=== PATIENT | male | born 1980 | race African-American/Black ===

== ENCOUNTER 2017-04-16 05:37 | Inpatient (IN) ==
[2017-04-16] MEDS ORDERED: methylPREDNISolone SOD SUC 125 MG/2 ML VIAL IV STA (06:07)
[2017-04-16] MEDS ORDERED: ALBUTEROL/IPRATROPIUM 3 ML NEB RESP TX STA (06:07)
[2017-04-16] MEDS ORDERED: cefTRIAXone 1,000 MG in SODIUM CHLORIDE 0.9% 100 ML IV STA (06:07)
--- NOTE | 2017-04-16 06:12 | Emergency Department Note ---
Arrival - Arrival Chief Complaint: Shortness of Breath Stated Complaint: SOB,chest tightness ED Nursing Triage Note: pt presented to triage ambulatory with c/o SOB x 1 days. also c/o pain with deep inspiration. denies fever. Mode of Arrival: Ambulatory Limitations: No Limitations Source: Patient Time Seen by Provider: 04/16/17 06:07 - History of Present Illness HPI Narrative: This 37-year-old black male presents with 48 hours of persistent cough cough productive of roland sputum with mild complaints of pleuritic type chest pain. Denies chills, fever, wheeze, purulence, hemoptysis, pedal edema, PND, orthopnea , nausea, or vomiting. He denies any prior history of cardiac or pulmonary problems. Currently he is in no acute medical distress. Onset (ago): hour(s) (Patient presents 48 hours post onset of symptoms) Allergies/Adverse Reactions: Allergies Allergy/AdvReac Type Severity Reaction Status Date / Time No Known Allergies Allergy Unverified 04/16/17 05:45 Review of System - Review of System 12 point system: reviewed and no additional remarkable complaints except as stated - Review of System Constitutional: Present: as per HPI Respiratory: Present: as per HPI Cardiovascular: Present: as per HPI Gastrointestinal: Present: as per HPI Medical,Surgical,& Family Hx - Social History Smoking Status: Current every day smoker Frequency of Alcohol Use: Occasionally Type of Drug Use: None Exam Physical Examination: GENERAL: Well developed, well nourished black male in no acute distress. HEENT: Normocephalic. No trauma. Moist mucous membranes. EOMI. PERRLA. ENT NML NECK: Supple. No adenopathy. CARDIAC: Regular. No murmurs. Heart rate 115 CHEST: Light anterior expiratory wheezes. No respiratory distress. O2 sat 94% ABDOMEN: Soft. Nontender. Active bowel sounds. EXTREMITIES: No trauma. Normal ROM. No pedal edema. SKIN: No diaphoresis. No rash. NEURO: Alert. Neuro intact no focal deficits. Vital Signs: Vital Signs Temperature 98.4 F 04/16/17 05:39 Pulse Rate 106 H 04/16/17 06:32 Respiratory Rate 18 04/16/17 06:32 Blood Pressure 138/103 04/16/17 05:48 O2 Sat by Pulse Oximetry 96 04/16/17 06:32 Course - Reevaluation(s) Reevaluation #1: I have discussed with the patient that his cardiac situation warrants further workup and for that reason he will be hospitalized. - Consultations Consultation #1: Discussed with hospitalist service who will admit for further evaluation treatment. Results - Labs CBC & BMP: 04/16/17 05:50 04/16/17 05:50 Lab Results: I have reviewed the patients labs Labs: I have reviewed the laboratory noted the bump in cardiac enzymes as well as elevated total CK - Impressions EKG sinus tachycardia at 105. Normal GA interval and QRS duration. Left ventricular hypertrophy. Nonspecific ST changes. No acute injury pattern noted. - Diagnostic Findings Procedure: Chest x-ray: image reviewed by me, report reviewed by me ( Cardiomegaly with bilateral pulmonary edema) Disposition Clinical Impression: Congestive heart failure, Abnormal cardiac enzyme, Bronchitis, Hypertension Case discussed with: patient Disposition: Still a Patient Condition: Guarded Time of Disposition: 07:27
[2017-04-16] MEDS ORDERED: hydrALAZINE 20 MG/1 ML VIAL IV STA (06:13)
[2017-04-16 06:16] LABS: Basophils # 0.1 10*3/uL (0.0-0.2); Basophils % 0.8 % (0.0-0.8); Eosinophils # 0.4 10*3/uL (0.0-0.87); Eosinophils % 5.6 % (0.00-10.9); Hematocrit 49.1 VOL% (42.0-52.0); Hemoglobin 16.8 GM/DL (14.0-18.0); Immature Granulocytes % 0.3 %; Immature Granulocytes Absolute 0.02 #; Lymphocytes # 2.1 10*3/uL (1.4-4.0); Lymphocytes % 34.1 % (21.2-54.2); Mean Corpuscular HGB Conc 34.2 GM/DL (32-36); Mean Corpuscular Hemoglobin 30 PG (27-34); Mean Corpuscular Volume 87.7 FL (87-102); Mean Platelet Volume 11.6 FL (9.6-12.0); Monocytes # 0.4 10*3/uL (0.11-0.8); Monocytes % 6.8 % (1.7-12.7); Neutrophils # 3.3 10*3/uL (1.4-7.4); Neutrophils % 52.4 % (38.7-73.9); Platelet Count 211 T/CUMM (130-400); Red Cell Distribution Width 15.7 % (9.3-17.3); White Blood Count 6.2 T/CUMM (4-12)
[2017-04-16 06:26] LABS: PT Patient Result 10.6 SECS; Partial Thromboplastin Time 34.1 SECS (0-40)
[2017-04-16] MEDS ORDERED: hydrALAZINE 20 MG/1 ML VIAL ONE (06:31)
[2017-04-16] MEDS ORDERED: cefTRIAXone 1,000 MG VIAL ONE (06:31)
[2017-04-16] MEDS ORDERED: methylPREDNISolone SOD SUC 125 MG/2 ML VIAL ONE (06:32)
[2017-04-16] MEDS ORDERED: SODIUM CHLORIDE 0.9% 100 ML IV ONE (06:32)
[2017-04-16 06:52] LABS: Apearance,Urine CLEAR (Clear); Bilirubin,Urine Negative (Negative); Blood, Urine Small mg/dL (Negative); Glucose,Urine (UA) Negative (Negative); Ketones,Urine Negative (Negative); Mucus,Urine Occasional /LPF (Occasional); Nitrite,Urine Negative (Negative); Protein,Urine Negative; Urine Color Yellow (Yellow); Urine Specific Gravity 1.009 (1.001-1.035); Urine Urobilinogen < 2.0 EU/DL (0.2-1.0); WBC,Urine 1 /HPF (0-6)
[2017-04-16 06:54] LABS: Alanine Aminotransferase 40 U/L (16-61); Alkaline Phosphatase 72 U/L (45-117); Aspartate Amino Transferase 34 U/L (0-37); Blood Urea Nitrogen 13 MG/DL (7-18); Calcium 9.1 MG/DL (8.5-10.1); Glucose 92 MG/DL (74-106); Osmolality,Calculated 280.3 MOS/KG (273-304); Potassium 3.9 MMOL/L (3.5-5.1); Sodium 141 MMOL/L (136-145); Total Protein 7.7 G/DL (6.4-8.3); Troponin I Only 0.048 NG/ML (0.00-0.045)
[2017-04-16] MEDS ORDERED: AZITHROMYCIN INJ 500 MG in SODIUM CHLORIDE 0.9% 250 ML IV STA (06:58)
[2017-04-16 07:06] LABS: Barbiturates Screen,Urine Negative (Negative); Benzodiazepines Screen,Urine Negative (Negative); Cannabinoid Screen,Urine Negative (Negative); Opiate Screen,Urine Negative (Negative); Phencyclidine Screen,Urine Negative (Negative)
[2017-04-16] MEDS ORDERED: AZITHROMYCIN 500 MG VIAL IV ONE (07:09)
--- NOTE | 2017-04-16 07:11 | XRay Report ---
2 view chest. Indication: Shortness of breath. The heart is enlarged. The pulmonary vasculature is prominent. The interstitial lung markings are prominent with curly B-lines present. No pneumothorax. No pleural effusion. No consolidation. Osseous structures are unremarkable. Impression: Pulmonary edema. PROCEDURE INTERPRETED AT [facility] DEPARTMENT OF RADIOLOGY Final Report Signed by: Dr. Madeline Jain
[2017-04-16] MEDS ORDERED: FUROSEMIDE 40 MG/4 ML VIAL IV STA (07:16)
[2017-04-16] MEDS ORDERED: FUROSEMIDE 40 MG/4 ML VIAL ONE (07:35)
--- NOTE | 2017-04-16 07:47 | EKG Report ---
Stationary ECG Study [facility] ER Test Date: 04/16/2017 5:43:41 AM Pat Name: CONI FRIEND Department: Room: Gender: M [employer]er: Nadeen : 1980 Requested by: Renny Taylor Order Number: [id number] Reading MD: AIDE GALICIA Intervals [place] Rate: 105 P: 999 [place]: 0 QRS: 59 QRSD: 102 T: 72 QT: 332 QTc: 393 Interpretive Statements Sinus TACHYCARDIA POSSIBLE LEFT VENTRICULAR HYPERTROPHY Electronically Signed On 04-16-17 07:51:17 CDT by AIDE GALICIA [email or web address]
[2017-04-16] MEDS ORDERED: DOCUSATE SODIUM 100 MG CAPSULE PO PRN (08:03)
[2017-04-16] MEDS ORDERED: ACETAMINOPHEN 325 MG TABLET PO PRN (08:03)
[2017-04-16] MEDS ORDERED: ONDANSETRON 4 MG/2 ML VIAL IV PRN (08:03)
[2017-04-16] MEDS ORDERED: NICOTINE 21 MG/24 HR PATCH TRANSDERM PRN (08:03)
[2017-04-16] MEDS ORDERED: guaiFENesin/DM ER 600-30 MG TABLET PO PRN (08:03)
[2017-04-16] MEDS ORDERED: ZALEPLON 5 MG CAPSULE PO PRN (08:03)
--- NOTE | 2017-04-16 08:27 | Hospitalist History & Physical ---
<Lorin Ericksonda - Last Filed: 04/16/17 08:20> Assessment and Plan - Time spent with patient Time spent with patient: Greater than 30 minutes (1) Nicotine addiction Status: Acute Assessment and plan: The patient reports current nicotine use. He reported that he smokes at least a half a pack of cigarettes each day. Spoke with patient in great detail regarding the need to refrain from nicotine use. Nicotine patch has been ordered patient has agreed to wear patch during the clinical encounter. Current Visit: Yes Qualifiers: Nicotine product type: cigarettes (2) Left ventricular hypertrophy by electrocardiogram Status: Acute Assessment and plan: Left ventricular hypertrophy suggested per electrocardiogram. The patient reports no significant cardiovascular history in the past. We will obtain echocardiogram to assess current heart function. In addition, we will start low -dose beta-domitila and CHAVA inhibitor. We will monitor closely. Current Visit: Yes (3) Congestive heart failure Status: Acute Assessment and plan: Chest x-ray suggested pulmonary edema. In addition, the patient's BNP was noted at 488 and troponins were noted at 0.048. The patient was also noted to have left ventricular hypertrophy per electrocardiogram. The patient has multiple factors increase in the risk for cardiovascular dysfunction. We will gently diurese, start beta-blockers and CHAVA inhibitors, we will obtain echocardiogram, and carotid Dopplers. We will monitor intake and output closely during the clinical encounter. Current Visit: Yes Qualifiers: Congestive heart failure type: unspecified congestive heart failure type Congestive heart failure chronicity: unspecified congestive heart failure chronicity Qualified Code(s): I50.9 - Heart failure, unspecified (4) Elevated troponin I level Status: Acute Assessment and plan: Troponin at the time of ED encounter was noted at 0.048. We will obtain serial troponin levels; if positive we will consult cardiology. Current Visit: Yes (5) Acute bronchitis Status: Acute Assessment and plan: Blood cultures have been obtained. We will start empiric antibiotic coverage, inhaled corticosteroids, and bronchodilators. We will recheck chest x-ray in a.m. Current Visit: Yes Qualifiers: Bronchitis organism: unspecified organism Qualified Code(s): J20.9 - Acute bronchitis, unspecified History of Present Illness Chief complaint: Shortness of breath History of present illness: This is a very pleasant 37-year-old male that presented to the ED at [facility] this morning for the evaluation of shortness of breath. The patient has a medical history significant for morbid obesity, nicotine addiction, and testosterone deficiency. The patient reported no surgical history at the time of encounter. The patient reported the onset of symptoms 2 days prior to presentation. He reported that he initially started experiencing short of breath that eventually progressed to a productive cough. In addition, he reported that the symptoms became very severe on last night prohibiting him from lying down. He describes the sputum production as "roland in color". He reported that the symptoms became very severe early this morning prompting him to present to the ED for further evaluation. The patient was seen and assessed at the time of ED presentation. Labs were obtained; complete blood count reported white blood cell count 6.2, hemoglobin 16.8, hematocrit 49.1, and platelet count at 211. Coagulation panel reported INR at 1.0, PT 10.6, d-dimer at less than or equal to 0.5, and PTT of 34.1. Comprehensive metabolic profile reported sodium 141, potassium 3.9, chloride 109 , carbon dioxide 22, anion gap 13.9, BUN 13, creatinine 1.50, calcium 9.1, AST 34, ALT 40, alkaline phosphatase 72, total creatinine kinase 663, CK-MB 2.3, troponin 0 0.048, and BNP at 488. Urinalysis and urine toxicology were both obtained and were essentially unremarkable. Chest x-ray reported cardiomegaly and pulmonary edema. After brief discussion with both Dr. Novak and Dr. Nascimento; the patient will be admitted to the hospitalist service for continuation of care. There are no home medications reported at the time of ED encounter. CODE STATUS has been reviewed and discussed; patient is a FULL CODE. Allergies Allergy/AdvReac Type Severity Reaction Status Date / Time No Known Allergies Allergy Unverified 04/16/17 05:45 Medical,Surgical,& Family Hx - Medical History Reproductive: Reports: Reproductive Problems (Testosterone deficiency) - Social History Smoking Status: Current every day smoker Have you smoked in the last 12 months: Yes Time spent discussing smoking cessation with patient: more than 10 minutes Frequency of Alcohol Use: Occasionally Type of Drug Use: None Marital Status: Single Lives With:: Alone Functional capacity: independent ambulation 12 point system: reviewed and no additional remarkable complaints except as stated Exam - Constitutional Vitals: Period Temp Pulse Resp BP Sys/Ibrahim Pulse Ox Last 24 Hr 98.4 F 101-114 18-22 137-138/103-115 94-97 General appearance: morbidly obese - Head Head exam: Present: normal inspection, normocephalic, atraumatic - Eye Eye exam: Present: EOMI. Absent: conjunctival injection Pupils: Present: NIGHAT, normal accommodation - ENT ENT exam: Present: normal exam, normal external ear exam, normal oropharynx - Neck Neck exam: Present: normal inspection. Absent: lymphadenopathy, meningismus, thyromegaly - Respiratory Respiratory exam: Present: wheezes (Expiratory). Absent: chest wall tenderness , decreased breath sounds - Cardiovascular Cardiovascular exam: Present: regular rate and rhythm. Absent: carotid bruit, diastolic murmur, gallop, JVD, rubs, systolic murmur - GI/Abdominal GI/Abdominal exam: Present: normal bowel sounds, soft - Extremities Exam Extremities exam: Present: normal inspection, normal capillary refill, full ROM. Absent: edema - Back Exam Back exam: Present: normal inspection - Neurological Exam Neurological exam: Present: alert, oriented X3, CN II-XII intact - Psychiatric Psychiatric exam: Present: normal affect, normal mood - Skin Skin exam: Present: normal color, warm, dry Results - Labs CBC & BMP: 04/16/17 05:50 04/16/17 05:50 Lab Results: I have reviewed the past 24 hour labs <Yamilet Szymanski - Last Filed: 04/16/17 12:50> History of Present Illness History of present illness: Mr. Vela is a 37 year old male who presented with SOB. Echo showed Echocardiogram done this morning showed a severely dilated left ventricle with severe global hypokinesis and an ejection fraction of 15% plus/minus. Carotid Doppler with 0-15% stenosis in both internal carotid arteries. Chest x-ray suggested pulmonary edema. Troponin on admission was 0.048 and CK was 663. At last check troponin was down to 0.033. Patient denies a history of chestpain, EKG showed LVH Plan monitored bed cardiac enzymes IV lasix, aceI, bblockers,asa, lovenox Follow Cardiology's consult high intensity Lipitor Exam - Constitutional Vitals: Period Temp Pulse Resp BP Sys/Ibrahim Pulse Ox Last 24 Hr 96.7 F-98.4 F 86-114 18-22 133-138/69-115 94-97 Results - Labs CBC & BMP: 04/16/17 05:50 04/16/17 05:50
[2017-04-16] MEDS ORDERED: MAGNESIUM SULF RIDER 4 GM in PREMIX 1 EACH IV PRN (08:30)
[2017-04-16] MEDS ORDERED: POTASSIUM CHLORIDE RIDER 10 MEQ in PREMIX 1 EACH IV PRN (08:30)
[2017-04-16] MEDS ORDERED: MAGNESIUM SULF RIDER 2 GM in PREMIX 1 EACH IV PRN (08:30)
[2017-04-16 08:35] LABS: Risk Ratio 8.03; Thyroid Stimulating Hormone 3.58 uIU/ml (0.358-3.74); VLDL CHOLESTEROL 69.4 MG/DL
[2017-04-16] MEDS ORDERED: LISINOPRIL 2.5 MG TABLET PO SCH (09:00)
[2017-04-16] MEDS ORDERED: CARVEDILOL 3.125 MG TABLET PO SCH (09:00)
[2017-04-16] MEDS ORDERED: ALBUTEROL 2.5 MG/3 ML NEB RESP TX PRN (09:52)
[2017-04-16] MEDS: ASPIRIN CHEW 81 MG TABLET PO SCH (10:46)
[2017-04-16] MEDS: PANTOPRAZOLE 40 MG TABLET PO SCH (10:46)
[2017-04-16] MEDS: ENOXAPARIN 40 MG/0.4 ML SYRINGE SUBCUT SCH (10:46)
--- NOTE | 2017-04-16 10:48 | ECHO Report ---
Narayan Vela Exam Date: 04/16/2017 09:17 Referring Physician: Technologist: phoebe Leigh ARDMS, RVT Age: 37 Ht (in): 72 Wt (lb): 300 Gender: M Exam Location: [facility] Echo Indications: CHF, Shortness of breath, LVH, Elevated troponin, Bronchitis, Nicotine addiction BP: 138 / 103 HR: 93 Rhythm: Sinus Technical Quality: Good IMPRESSIONS 1. Left ventricle severely dilated with severe global hypokinesis and ejection fraction of 15% plus/minus. 2. Right atrium and right ventricle are at least mildly dilated. 3. Moderately dilated left atrium. 4. Aortic valve is structurally functioning normal with only some views what may be a vegetation anterior to the right coronary cusp. Clinical correlation recommended. 5. Other valvular structures are unremarkable. 6. There is minimal elevated right-sided pressures. MEASUREMENTS (Male / Female) Normal Values 2D ECHO LV Diastolic Diameter PLAX 7.1 cm 4.2 - 5.9 / 3.9 - 5.3 cm LV Systolic Diameter PLAX 6.6 cm LV Fractional Shortening PLAX 6.9 % IVS Diastolic Thickness 1.4 cm 0.6 - 1.0 / 0.6 - 0.9 cm LVPW Diastolic Thickness 1.3 cm 0.6 - 1.0 / 0.6 - 0.9 cm RV Internal Dim ED PLAX 3.9 cm Aortic Root Diameter 3.7 cm LA Systolic Diameter LX 5.2 cm 3.0 - 4.0 / 2.7 - 3.8 cm DOPPLER TR Peak Velocity 274.0 cm/s TR Peak Gradient 30.0 mmHg FINDINGS Left Ventricle Left ventricle is severely dilated. Mild left ventricular hypertrophy. There is severe global hypokinesis ejection fraction is estimated at 15-/+ %. Right Ventricle Mildly increased right ventricular size. Right Atrium The right atrium is mildly enlarged. Left Atrium Moderately increased left atrial size. Mitral Valve Morphologically normal mitral valve. Trace to mild mitral valve regurgitation. Aortic Valve No aortic valve regurgitation. No aortic valve stenosis. There is an echogenic area anterior to the right coronary cusp on long axis views that could possibly represent a vegetation. Tricuspid Valve Morphologically normal tricuspid valve. Trace to mild tricuspid valve regurgitation. Tricuspid regurgitation velocities suggest a PAP of 35- 40 mmHg. Pulmonic Valve Morphologically normal pulmonic valve without significant stenosis. There is no pulmonic regurgitation. Pericardium Normal pericardium without effusion. Aorta Normal ascending aorta dimension. Horacio Toscano MD (Electronically Signed) Final Date: 16 April 2017 10:46
--- NOTE | 2017-04-16 11:36 | Ultrasound Report ---
Exam: Carotid ultrasound Date: 04/16/2017 Comparison: None Technique: Duplex scans of the carotid and vertebral arteries using B-mode/Rai scale imaging and Doppler spectral analysis and color flow. Reason: Chest pain, possible cardiac disease Findings: The right ICA measures 4.9 mm in diameter and the left ICA measures 6.6 mm in diameter. Color-flow documented in the visualized arteries. The peak systolic velocities are as follows: Right CCA: 69.1 cm/s Right ICA: 74.3 cm/s Right ECA: 93.8 cm/s Left CCA: 85.3 cm/s Left ICA: 85.7 cm/s Left ECA: 108.2 cm/s The peak systolic ICA/CCA velocity ratios are as follows: 1.1 on the right and 0.7 on the left. Antegrade flow is present in both vertebral arteries. Impression:[0 - 15% stenosis in both internal carotid arteries with no significant plaque formation. Antegrade flow in both vertebral arteries.] The Society of Radiologists in Ultrasound consensus conference criteria was used. The Ultrasound images were captured and stored. PROCEDURE INTERPRETED AT [facility] DEPARTMENT OF RADIOLOGY Final Report Signed by: Dr. Fina La
[2017-04-16] MEDS: ALBUTEROL/IPRATROPIUM 3 ML NEB RESP TX SCH ×2 (14:53→21:05)
--- NOTE | 2017-04-16 15:00 | Cardiology Consult Note ---
I, Isabelle Deleon RN, am scribing for, and in the presence of, Horacio Toscano MD 14:51. Assessment and Plan - Time spent with patient Time spent with patient: Greater than 30 minutes (Due to assessment, planning, documentation, medication review) (1) Congestive heart failure Status: Acute Assessment and plan: This is acute and secondary LV dysfunction. This clinically is improving. We will need to treat this aggressively with beta-blockers as well as offloading agents. He is on lisinopril at this time which we will need to monitor special out of his creatinine be minimally elevated. Current Visit: Yes Qualifiers: Congestive heart failure type: unspecified congestive heart failure type Congestive heart failure chronicity: unspecified congestive heart failure chronicity Qualified Code(s): I50.9 - Heart failure, unspecified (2) Left ventricular hypertrophy by electrocardiogram Status: Acute Assessment and plan: This may be secondary to long-standing and uncontrolled unmanaged hypertension. Current Visit: Yes (3) Nicotine addiction Status: Acute Assessment and plan: Discussed the merits of tobacco cessation with patient. We will need to have rehab or someone see him in regard to this. Current Visit: Yes Qualifiers: Nicotine product type: cigarettes (4) Cardiomyopathy Status: Acute Assessment and plan: This is probably idiopathic/nonischemic. This is not acute even though his symptoms are somewhat acute. At level 15% this is been a slow progress that he has been able to compensate for until now. We will need to treat this aggressively including CHAVA inhibitor/ARB's as well as beta blockers and diuresis. Because of his creatinine being elevated we will continue to watch CHAVA inhibitors. Current Visit: Yes (5) Obesity Status: Acute Assessment and plan: Weight loss should be an important factor for him. This is a chronic issue. He needs dietary to discuss weight loss low-sodium diet with him. Current Visit: Yes (6) Chronic renal insufficiency Status: Acute Assessment and plan: Probably chronically sufficient his creatinine elevated. This could though be somewhat acute but we do not have any old records to compare to. I suspect with his BUN being normal with this is indeed more chronic. 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 Vela is a 37 year old male who has never seen a customs agent. He denies ever having had a stress test or heart catheterization done. He lives in [facility]. He denies any medical history except for testosterone deficiency. He denies any surgical history. Family history is positive for mother with diabetes and hypertension, father with hypertension, and sister with hypertension. He is a current smoker, smoking 1 pack per day. He has smoked since 2002. Mr. Vela states when he woke up yesterday morning he was extremely short of breath. He noted that this shortness of breath did get worse with exertion. He reports he did have some chest discomfort, but it felt like it hurt because he could not get a good breath. He denies any other further chest pain. He had noticed his abdominal area seem to be swollen, he has not noticed any swelling of his extremities. He presented the emergency department this morning because shortness with a continued and was getting no better. He states he did have an episode like this several months ago open (in January). At that time he was also visiting from out of town, but at that time the symptoms did improve and he never sought evaluation. He reports he has been drinking a lot of alcohol recently as well as eating lots of salty food including barbecue that he does not normally eat when he is at home. He was placed on oxygen in the emergency department as well as given IV Lasix. He says he diuresed well from the Lasix, and as soon as he began to diurese his shortness of breath improved. His diastolic blood pressures were greater than 100 in the emergency department. He was given hydralazine IV the emergency department and started on lisinopril and Coreg p.o. Her pressures have improved, currently 133/69. Echocardiogram done this morning showed ejection fraction of 15%. Aortic valve shows in some views but may be a vegetation anterior to the right coronary cusp. Carotid Doppler with 0-15% stenosis in both internal carotid arteries. Chest x-ray suggested pulmonary edema. Troponin on admission was 0.048 and CK was 663. At last check troponin was down to 0.033. His cholesterol numbers are elevated. He states he was told his triglycerides were elevated several years ago. He was never placed any medication, he is try to control this with diet. Mr. Vela is seen resting in bed no acute distress. Oxygen is in use via nasal cannula. He denies any chest pain. He reports his shortness of breath has improved a good deal, but states he is not back to his baseline. He feels his abdomen is smaller than when he came in, but again is not back to his baseline. seo assistant currently shows sinus rhythm with heart rates in the 90s. I personally interviewed and examined the patient and review the chart. I discussed this case with Isabelle Deleon RN. The patient history is as noted above. His issues is that he has a questionable vegetation on his aortic valve. He does not have an elevated white count or fever and he is not anemic. This certainly would be against a bacterial endocarditis. Certainly a fungal endocarditis would be possible still. He though clinically he has not had overt symptoms of endocarditis or an acute illness. He has not had any overt heart failure symptoms with the exception of an episode in January in which he was short of breath for short time that was self-limiting. It was similar to this episode. He though works out is been active. It certainly is unlikely that this is an acute situation in terms of his LV dysfunction in that at this level I would suspect he would be markedly symptomatic and more acutely ill. He needs a transesophageal echocardiogram to evaluate for possible aortic valve mass/endocarditis. I discussed this procedure in detail with the patient and his family present including his father mother and brother. I reviewed with them the indication the procedure which is his aortic valve mass on transthoracic echo. Also discussed with them the procedure and how it would be carried out with sedation and passing a probe into his esophagus and stomach. Also reviewed the possible risks which include but not limited to aspiration pneumonia requiring antibiotics and prolonged hospital stay as well as possible esophageal rupture or tear requiring blood transfusion or even thoracic surgery and even from this. They voiced understanding and agree to proceed. We will plan on doing this tomorrow. I also discussed with them his cardiomyopathy and at this time we need an issue to alter lifestyle risk factor modifications. Beneficial things would be weight loss as well as low-sodium diet, stop smoking, appropriate exercise. He will not need to do strenuous exercise at this time I discussed this with him in a walking program would be appropriate. We will ask cardiac rehab to assist in smoking cessation and have dietary discuss and reinforce low-sodium diet. CC: Yamilet Szymanski MD - Home Medications and Allergies Allergies/Adverse Reactions: Allergies Allergy/AdvReac Type Severity Reaction Status Date / Time No Known Allergies Allergy Unverified 04/16/17 05:45 - Constitutional Constitutional: Present: as per HPI - EENT Eyes: Present: requires corrective lense. Absent: blurry vision, loss of vision Ears: Absent: decreased hearing, ear pain, tinnitus Nose, mouth and throat: Absent: dysphagia, epistaxis, headache(s), neck pain, sore throat - Cardiovascular Cardiovascular: Present: dyspnea, dyspnea on exertion, edema, orthopnea. Absent : chest pain at rest, chest pain with activity, diaphoresis, radiating jaw, neck or arm pain, lightheadedness, palpitations - Respiratory Respiratory: Present: cough, dyspnea, dyspnea on exertion. Absent: hemoptysis, wheezing - Gastrointestinal Gastrointestinal: Present: bloating. Absent: abdominal pain, constipation, diarrhea, hematemesis, hematochezia, melena, nausea, vomiting - Genitourinary Genitourinary: Absent: dysuria, hematuria - Musculoskeletal Musculoskeletal: Present: back pain. Absent: limited range of motion, muscle weakness - Neurological Neurological: Absent: abnormal gait, abnormal speech, confusion, dizziness, frequent falls, headache(s), syncope - Psychiatric Psychiatric: Absent: anxiety, depression - Endocrine Endocrine: Absent: cold intolerance, fatigue, heat intolerance - Hematologic/Lymphatic Hematologic/Lymphatic: Absent: easy bleeding, easy bruising Medical,Surgical,& Family Hx - Medical History Cardio: No history of: CAD Psychological: No history of: Behavior Problems, Previous Suicide Attempt, Psychiatric Problems Neurology: No history of: Neurological Problems HEENT: No history of: HEENT Problems Endocrine: No history of: Diabetes Mellitus (IDDM) Rheumatology: No history of;: Rheumatological Problems Respiratory: No history of: Respiratory Problems Renal: No history of: Renal Problems Gastrointestinal: No history of: GI Problems Musculoskeletal: No history of: Musculoskeletal Problems Hematology: No history of: Blood Disorders Reproductive: Reports: Reproductive Problems (Testosterone deficiency) - Surgical History Surgical History: noncontributory (Denies any past surgical history) - Family History Family History: Reports;: Family Diabetes (Mother), Family Hypertension (Father mother sister) - Social History Smoking Status: Current every day smoker Have you smoked in the last 12 months: Yes Time spent discussing smoking cessation with patient: 3 to 10 minutes Frequency of Alcohol Use: Occasionally Type of Drug Use: None Marital Status: Single Lives With:: Alone Functional capacity: independent ambulation Physical Examination Vital Signs Temp Pulse Resp BP Pulse Ox 98.4 F 114 H 22 137/115 94 L 04/16/17 05:39 04/16/17 05:39 04/16/17 05:39 04/16/17 05:39 04/16/17 05:39 General: Present: Appears Well, No Apparent Distress, Other (Obese, sweating was in the room with the room was fairly warm/hot.) HEENT: Present: PERRL, Mucus Membranes Moist Neck: Present: Supple Neck, Midline Trachea, No Bruit Cardiac: Present: Reg Rate and Rhythm, No Murmur Lungs: Present: Normal Breath Sounds, Oxygen (Via nasal cannula), No Wheeze, Rales, Rhonchi Neuro: Absent: Resting Tremor, Essential Tremor Abdomen: Present: Soft, Active Bowel Sounds, Non-Tender Skin: Absent: Rash, Suspicious Lesions Musculoskeletal: Present: No Pain, Normal Range of Motion Gait: Present: Normal Gait Extremities: Present: Normal Gait, Normal Upper Extr. Pulses, Normal Lower Extr. Pulses, Edema (Trace to bilateral lower extremities) Result/EKG - Labs CBC & BMP: 04/16/17 05:50 04/16/17 05:50 Lab Results: I have reviewed the past 24 hour labs Labs: Laboratory Results - last 24 hr 04/16/17 04/16/17 04/16/17 05:50 05:50 05:50 WBC 6.2 RBC 5.60 H Hgb 16.8 Hct 49.1 MCV 87.7 MCH 30 MCHC 34.2 RDW 15.7 Plt Count 211 MPV 11.6 Neut % (Auto) 52.4 Lymph % (Auto) 34.1 Turner % (Auto) 6.8 Eos % (Auto) 5.6 Baso % (Auto) 0.8 Neut # (Auto) 3.3 Lymph # (Auto) 2.1 Turner # (Auto) 0.4 Eos # (Auto) 0.4 Baso # (Auto) 0.1 Immature Gran % 0.3 Nucleated RBC % 0.0 Immature Gran # 0.02 Nucleated RBCs # 0.00 Immature Plt Fraction 0.0 INR 1.0 PT Patient/Control Mix 10.6 D-Dimer, Quantitative Circ Anticoag PTT 34.1 Sodium 141 Potassium 3.9 Chloride 109 H Carbon Dioxide 22 Anion Gap 13.9 BUN 13 Creatinine 1.50 H GFR Calculation 85 BUN/Creatinine Ratio 8.00 Glucose 92 Hemoglobin A1c Calculated Osmolality 280.3 Calcium 9.1 Total Bilirubin 0.70 AST 34 ALT 40 Alkaline Phosphatase 72 Total Creatine Kinase 663 H CK-MB (CK-2) 2.3 Troponin I 0.048 H B-Natriuretic Peptide Total Protein 7.7 Albumin 4.0 Globulin 3.7 H Albumin/Globulin Ratio 1.0 L Triglycerides Cholesterol LDL Cholesterol VLDL Cholesterol HDL Cholesterol Heart Disease Risk Ratio TSH 3rd Generation Urine Color Urine Appearance Urine pH Ur Specific [place] Urine Protein Urine Glucose (UA) Urine Ketones Urine Blood Urine Nitrate Urine Bilirubin Urine Urobilinogen Urine Leukocytes Urine WBC Urine Mucus Ur Culture Indicated? Urine Opiates Screen Ur Barbiturates Screen Ur Phencyclidine Scrn U Amphetamine/Methamph U Benzodiazepines Scrn U Cocaine Metab Screen U Cannabinoids Screen 04/16/17 04/16/17 04/16/17 05:50 05:50 05:50 WBC RBC Hgb Hct MCV MCH MCHC RDW Plt Count MPV Neut % (Auto) Lymph % (Auto) Turner % (Auto) Eos % (Auto) Baso % (Auto) Neut # (Auto) Lymph # (Auto) Turner # (Auto) Eos # (Auto) Baso # (Auto) Immature Gran % Nucleated RBC % Immature Gran # Nucleated RBCs # Immature Plt Fraction INR PT Patient/Control Mix D-Dimer, Quantitative <= 0.5 Circ Anticoag PTT Sodium Potassium Chloride Carbon Dioxide Anion Gap BUN Creatinine GFR Calculation BUN/Creatinine Ratio Glucose Hemoglobin A1c Calculated Osmolality Calcium Total Bilirubin AST ALT Alkaline Phosphatase Total Creatine Kinase CK-MB (CK-2) Troponin I B-Natriuretic Peptide 488 H Total Protein Albumin Globulin Albumin/Globulin Ratio Triglycerides 347 H Cholesterol 249 H LDL Cholesterol 170.0 VLDL Cholesterol 69.4 HDL Cholesterol 31 L Heart Disease Risk Ratio 8.03 TSH 3rd Generation 3.580 Urine Color Urine Appearance Urine pH Ur Specific [place] Urine Protein Urine Glucose (UA) Urine Ketones Urine Blood Urine Nitrate Urine Bilirubin Urine Urobilinogen Urine Leukocytes Urine WBC Urine Mucus Ur Culture Indicated? Urine Opiates Screen Ur Barbiturates Screen Ur Phencyclidine Scrn U Amphetamine/Methamph U Benzodiazepines Scrn U Cocaine Metab Screen U Cannabinoids Screen 04/16/17 04/16/17 04/16/17 05:55 05:55 10:03 WBC RBC Hgb Hct MCV MCH MCHC RDW Plt Count MPV Neut % (Auto) Lymph % (Auto) Turner % (Auto) Eos % (Auto) Baso % (Auto) Neut # (Auto) Lymph # (Auto) Turner # (Auto) Eos # (Auto) Baso # (Auto) Immature Gran % Nucleated RBC % Immature Gran # Nucleated RBCs # Immature Plt Fraction INR PT Patient/Control Mix D-Dimer, Quantitative Circ Anticoag PTT Sodium Potassium Chloride Carbon Dioxide Anion Gap BUN Creatinine GFR Calculation BUN/Creatinine Ratio Glucose Hemoglobin A1c 5.6 Calculated Osmolality Calcium Total Bilirubin AST ALT Alkaline Phosphatase Total Creatine Kinase CK-MB (CK-2) Troponin I B-Natriuretic Peptide Total Protein Albumin Globulin Albumin/Globulin Ratio Triglycerides Cholesterol LDL Cholesterol VLDL Cholesterol HDL Cholesterol Heart Disease Risk Ratio TSH 3rd Generation Urine Color Yellow Urine Appearance Clear Urine pH 5.0 Ur Specific [place] 1.009 Urine Protein Negative Urine Glucose (UA) Negative Urine Ketones Negative Urine Blood Small Urine Nitrate Negative Urine Bilirubin Negative Urine Urobilinogen < 2.0 H Urine Leukocytes Negative Urine WBC 1 Urine Mucus Occasional Ur Culture Indicated? Not indicated Urine Opiates Screen Negative Ur Barbiturates Screen Negative Ur Phencyclidine Scrn Negative U Amphetamine/Methamph Negative U Benzodiazepines Scrn Negative U Cocaine Metab Screen Negative U Cannabinoids Screen Negative 04/16/17 10:03 WBC RBC Hgb Hct MCV MCH MCHC RDW Plt Count MPV Neut % (Auto) Lymph % (Auto) Turner % (Auto) Eos % (Auto) Baso % (Auto) Neut # (Auto) Lymph # (Auto) Turner # (Auto) Eos # (Auto) Baso # (Auto) Immature Gran % Nucleated RBC % Immature Gran # Nucleated RBCs # Immature Plt Fraction INR PT Patient/Control Mix D-Dimer, Quantitative Circ Anticoag PTT Sodium Potassium Chloride Carbon Dioxide Anion Gap BUN Creatinine GFR Calculation BUN/Creatinine Ratio Glucose Hemoglobin A1c Calculated Osmolality Calcium Total Bilirubin AST ALT Alkaline Phosphatase Total Creatine Kinase CK-MB (CK-2) Troponin I 0.033 B-Natriuretic Peptide Total Protein Albumin Globulin Albumin/Globulin Ratio Triglycerides Cholesterol LDL Cholesterol VLDL Cholesterol HDL Cholesterol Heart Disease Risk Ratio TSH 3rd Generation Urine Color Urine Appearance Urine pH Ur Specific [place] Urine Protein Urine Glucose (UA) Urine Ketones Urine Blood Urine Nitrate Urine Bilirubin Urine Urobilinogen Urine Leukocytes Urine WBC Urine Mucus Ur Culture Indicated? Urine Opiates Screen Ur Barbiturates Screen Ur Phencyclidine Scrn U Amphetamine/Methamph U Benzodiazepines Scrn U Cocaine Metab Screen U Cannabinoids Screen - Impressions Impressions: ECG with sinus tachycardia and left ventricular hypertrophy. As per radiology report patient with some pulmonary edema on chest x-ray. Echocardiogram with severe LV dilation LV dysfunction ejection fraction 50%. Cardiac chambers are at least mild to moderately dilated. No significant valve abnormality with the exception the aortic valve having anterior to the right coronary cusp a echogenic shadow that may represent vegetation. Carotid Dopplers that are unremarkable without occlusive disease or any significant stenosis. - Diagnostic Findings Procedure: Chest x-ray: report reviewed by me - EKG EKG results: interpreted by me EKG shows: sinus rhythm Everton Kendrick John Timothy, MD, personally performed the services described in this documentation, ascribed by Isabelle Deleon RN in my presence, and it is both accurate and complete .
[2017-04-16] MEDS: FUROSEMIDE 40 MG/4 ML VIAL IV SCH (15:26)
[2017-04-16] MEDS ORDERED: SODIUM CHLORIDE 0.9% 1,000 ML IV SCH ×2 (15:30)
[2017-04-16] MEDS ORDERED: FUROSEMIDE 20 MG/2 ML VIAL IV SCH (16:00)
[2017-04-16] MEDS: CARVEDILOL 6.25 MG TABLET PO SCH (17:03)
[2017-04-16] MEDS: LOSARTAN 25 MG TABLET PO SCH (20:25)
[2017-04-16] MEDS: ATORVASTATIN 80 MG TABLET PO SCH (20:25)
[2017-04-16 20:35] LABS: Troponin I Only < 0.015 NG/ML (0.00-0.045)
[2017-04-17] MEDS: ALBUTEROL/IPRATROPIUM 3 ML NEB RESP TX SCH ×4 (00:19→19:17)
[2017-04-17 05:37] LABS: Basophils % 0.1 % (0.0-0.8); Hematocrit 45.9 VOL% (42.0-52.0); Hemoglobin 15.4 GM/DL (14.0-18.0); Immature Granulocytes % 0.1 %; Immature Granulocytes Absolute 0.01 #; Lymphocytes # 0.8 10*3/uL (1.4-4.0); Lymphocytes % 8.7 % (21.2-54.2); Mean Corpuscular HGB Conc 33.6 GM/DL (32-36); Mean Corpuscular Hemoglobin 29 PG (27-34); Mean Corpuscular Volume 87.8 FL (87-102); Mean Platelet Volume 12.3 FL (9.6-12.0); Monocytes # 0.5 10*3/uL (0.11-0.8); Monocytes % 5.7 % (1.7-12.7); NRBC # 0.02 10*3/uL; Neutrophils # 7.4 10*3/uL (1.4-7.4); Neutrophils % 85.4 % (38.7-73.9); Platelet Count 209 T/CUMM (130-400); Red Blood Count 5.23 MC/CUMM (3.8-5.5); Red Cell Distribution Width 15.9 % (9.3-17.3); White Blood Count 8.6 T/CUMM (4-12)
[2017-04-17 06:14] LABS: Albumin 3.6 G/DL (3.4-5.0); Bilirubin,Total 1.2 MG/DL (0.2-1.0); Magnesium 2.2 MG/DL (1.8-2.4); Osmolality,Calculated 287.1 MOS/KG (273-304); Potassium 4.1 MMOL/L (3.5-5.1); Total Protein 6.9 G/DL (6.4-8.3)
[2017-04-17 06:16] LABS: Troponin I Only < 0.015 NG/ML (0.00-0.045)
[2017-04-17] MEDS ORDERED: AZITHROMYCIN INJ 500 MG in SODIUM CHLORIDE 0.9% 250 ML IV SCH (08:00)
[2017-04-17] MEDS ORDERED: MIDAZOLAM 2 MG/2 ML VIAL ONE (08:09)
[2017-04-17] MEDS ORDERED: PROPOFOL 200 MG/20 ML VIAL IV ONE (08:09)
[2017-04-17] MEDS ORDERED: fentaNYL 100 MCG/2 ML VIAL ONE (08:09)
[2017-04-17] MEDS ORDERED: ETOMIDATE 20 MG/10 ML VIAL IV ONE (08:09)
--- NOTE | 2017-04-17 08:15 | XRay Report ---
XR chest 1V portable Indication: Shortness of breath Comparison: 16 April 2017 Findings: The heart and mediastinum are normal in size and configuration. The pulmonary vascularity is normal in caliber. No lung infiltrates, effusions, pneumothorax or other abnormality is demonstrated. Impression: No acute cardiopulmonary findings. PROCEDURE INTERPRETED AT [facility] [place] DEPARTMENT OF RADIOLOGY Final Report Signed by: Dr. Paul Knight
--- NOTE | 2017-04-17 08:39 | Cardiology Progress Note ---
Assessment and Plan (1) Congestive heart failure Status: Acute Assessment and plan: This is acute and secondary LV dysfunction. This clinically is improving. Chest x-ray is stable. Current Visit: Yes Qualifiers: Congestive heart failure type: unspecified congestive heart failure type Congestive heart failure chronicity: unspecified congestive heart failure chronicity Qualified Code(s): I50.9 - Heart failure, unspecified (2) Left ventricular hypertrophy by electrocardiogram Status: Acute Assessment and plan: This may be secondary to long-standing and uncontrolled unmanaged hypertension. Current Visit: Yes (3) Nicotine addiction Status: Chronic Assessment and plan: Discussed the merits of tobacco cessation with patient. Rehab should be evaluating the patient and discussing smoking cessation with him. Current Visit: Yes Qualifiers: Nicotine product type: cigarettes (4) Cardiomyopathy Status: Acute Assessment and plan: This is probably idiopathic/nonischemic. Given for the most part this is probably chronic. We will adjust his medications to manage this. Current Visit: Yes (5) Obesity Status: Chronic Assessment and plan: Weight loss should be an important factor for him. This is a chronic issue. Or ask dietary to discuss weight loss diet with the patient as well as low- sodium diet. Current Visit: Yes (6) Chronic renal insufficiency Status: Acute Assessment and plan: Creatinine is elevated more today. This is probably acute on chronic renal sufficiency. Some this may be exacerbated by his medications and treatment. We need to look at this and adjust medications appropriately. Current Visit: Yes Cardiology - PN: Subj Interval history: Patient doing well today. Had unremarkable night of the being woken by staff. He had no PND orthopnea during the night. He has had no chest pain no shortness of breath today. Patient's heart rate is stable. Vital signs fairly stable. His blood pressure still up a little bit warm his checks today. Will monitor that. His lab work was reviewed and his creatinine is now up to 1.8. BUN is at 19 weeks up some. He is for transesophageal echocardiogram because of the question of an aortic valve mass. We will plan on carrying out the MEGAN today. Again I discussed this with the patient reviewing indication procedure as well as how would be carried out and the risk. Again I reviewed with him and family present the risks which include but not necessarily limited to esophageal injury with tear or rupture requiring possible thoracic surgery blood transfusions as well as the possibility of aspiration pneumonia. Also discussed from a major complication he could have a result of . He voiced understanding agrees to proceed. Exam (Progress Note) - Constitutional Vitals: Period Temp Pulse Resp BP Sys/Ibrahim Pulse Ox Last 24 Hr 96.1 F-97.8 F 78-108 17-20 102-142/58-84 94-99 Exam: General appearance: Obese, no acute distress HEENT exam: normal inspection, atraumatic Neck exam: normal inspection no JVD. No carotid bruit. Trachea is in midline Respiratory/lungs exam: clear to auscultation bilaterally good air movement. Cardiovascular exam: regular rate and rhythm, no murmur or gallop or rub. No precordial lift. Chest wall exam: nontender GI/Abdominal exam: normal bowel sounds, soft, nontender. Extremeties/musculoskeletal: normal inspection without edema or cyanosis. Neurological exam: alert, oriented X3, no focal deficits Psychiatric exam: normal affect, normal mood. Cognitive function is grossly normal. Skin exam: normal color, warm Result/EKG - Labs CBC & BMP: 04/17/17 05:01 04/17/17 05:01 Lab Results: I have reviewed the past 24 hour labs (His creatinine is increasing.) Labs: Laboratory Results - last 24 hr 04/16/17 04/16/17 04/16/17 10:03 10:03 12:43 WBC RBC Hgb Hct MCV MCH MCHC RDW Plt Count MPV Neut % (Auto) Lymph % (Auto) Toole % (Auto) Eos % (Auto) Baso % (Auto) Neut # (Auto) Lymph # (Auto) Toole # (Auto) Eos # (Auto) Baso # (Auto) Immature Gran % Nucleated RBC % Immature Gran # Nucleated RBCs # Immature Plt Fraction Sodium Potassium Chloride Carbon Dioxide Anion Gap BUN Creatinine GFR Calculation BUN/Creatinine Ratio Glucose Hemoglobin A1c 5.6 Calculated Osmolality Calcium Magnesium Total Bilirubin AST ALT Alkaline Phosphatase Total Creatine Kinase 560 H CK-MB (CK-2) 2.0 Troponin I 0.033 0.030 B-Natriuretic Peptide Total Protein Albumin Globulin Albumin/Globulin Ratio 04/16/17 04/17/17 04/17/17 19:47 05:01 05:01 WBC 8.6 D RBC 5.23 Hgb 15.4 Hct 45.9 MCV 87.8 MCH 29 MCHC 33.6 RDW 15.9 Plt Count 209 MPV 12.3 H Neut % (Auto) 85.4 H Lymph % (Auto) 8.7 L Toole % (Auto) 5.7 Eos % (Auto) 0.0 Baso % (Auto) 0.1 Neut # (Auto) 7.4 Lymph # (Auto) 0.8 L Toole # (Auto) 0.5 Eos # (Auto) 0.0 Baso # (Auto) 0.0 Immature Gran % 0.1 Nucleated RBC % 0.2 Immature Gran # 0.01 Nucleated RBCs # 0.02 Immature Plt Fraction 0.0 Sodium 142 Potassium 4.1 Chloride 109 H Carbon Dioxide 24 Anion Gap 13.1 BUN 19 H Creatinine 1.80 H GFR Calculation 79 BUN/Creatinine Ratio 10.00 Glucose 150 H Hemoglobin A1c Calculated Osmolality 287.1 Calcium 9.0 Magnesium 2.2 Total Bilirubin 1.20 H AST 17 ALT 30 Alkaline Phosphatase 60 Total Creatine Kinase 505 H CK-MB (CK-2) 1.7 Troponin I < 0.015 B-Natriuretic Peptide Total Protein 6.9 Albumin 3.6 Globulin 3.3 Albumin/Globulin Ratio 1.0 L 04/17/17 04/17/17 05:01 05:01 WBC RBC Hgb Hct MCV MCH MCHC RDW Plt Count MPV Neut % (Auto) Lymph % (Auto) Toole % (Auto) Eos % (Auto) Baso % (Auto) Neut # (Auto) Lymph # (Auto) Toole # (Auto) Eos # (Auto) Baso # (Auto) Immature Gran % Nucleated RBC % Immature Gran # Nucleated RBCs # Immature Plt Fraction Sodium Potassium Chloride Carbon Dioxide Anion Gap BUN Creatinine GFR Calculation BUN/Creatinine Ratio Glucose Hemoglobin A1c Calculated Osmolality Calcium Magnesium Total Bilirubin AST ALT Alkaline Phosphatase Total Creatine Kinase 352 H D CK-MB (CK-2) < 1.0 Troponin I < 0.015 B-Natriuretic Peptide 372 H Total Protein Albumin Globulin Albumin/Globulin Ratio - Impressions Impressions: Telemetry with normal sinus rhythm. Chest x-ray is stable. Specialty Discharge - Follow Up or Referrals
--- NOTE | 2017-04-17 09:24 | Operative Note ---
Date of procedure: 04/17/17 Pre-op diagnosis: Aortic valve mass Post-op diagnosis: same (Same but does not appear pathological.) Procedure: Transesophageal echocardiogram was carried out with MAC and topical anesthesia of the pharynx. Please see the transesophageal echocardiogram report for details. There was no immediate complications. Implants: None Anesthesia: MAC Surgeon / Physician: Horacio Toscano Estimated blood loss: none Specimens: none sent Condition: stable Disposition: floor Results - Labs CBC & BMP: 04/17/17 05:01 04/17/17 05:01 Discharge Plan - Discharge Medications No Action Testosterone Cypionate [Depo Testosterone] 1 ml IM Q6D Letrozole 2.5 mg PO DAILY Human Chorionic Gonadotropin Flaxseed Oil 1,000 mg PO TID - Follow Up or Referral - Forms/Instructions Instructions: How to Stop Smoking (GEN), Heart Healthy Diet (GEN), Cigarette Smoking and Your Health, [place] (GEN)
[2017-04-17] MEDS: CARVEDILOL 6.25 MG TABLET PO SCH ×2 (10:22→18:04)
[2017-04-17] MEDS: ASPIRIN CHEW 81 MG TABLET PO SCH (10:22)
[2017-04-17] MEDS: LOSARTAN 25 MG TABLET PO SCH ×2 (10:22→22:01)
[2017-04-17] MEDS: PANTOPRAZOLE 40 MG TABLET PO SCH (10:23)
[2017-04-17] MEDS ORDERED: SODIUM CHLORIDE 0.9% 1,000 ML IV SCH (10:30)
--- NOTE | 2017-04-17 10:50 | ECHO Report ---
Narayan Vela Exam Date: 04/17/2017 08:58 Referring Physician: Technologist: phoebe Leigh ARDMS, RVT Age: 37 Ht (in): 72 Wt (lb): 301 Gender: M Exam Location: [facility] Echo Pre-op Dx: Abnormal echo, Evaluate Aortic valve Post-op Dx: BP: 122 / 77 HR: 118 Rhythm: Sinus Technical Quality: Good Specimens Taken None Devices Implanted None Medications MAC, see anesthesia's report Complications None immediate Estimated Blood Loss None Proc. Components Transesophageal echocardiogram with Merlin cavitation study. Color and spectral Doppler is used. IMPRESSIONS 1. The left ventricle is severely dilated with severe LV dysfunction ejection fraction less than 20%. No segmental wall motion maladies noted in LV wall thickness is normal to mild hypertrophy. 2. Right ventricle is probably normal size. 3. Right atrium at worst is mildly dilated. 4. Left atrium is Davian severely dilated. 5. Atrial and ventricular septum is intact without evidence for shunting. 6. Valvular structures are anatomically functionally normal. 7. There is an intermittent shadowing if the aortic valve particularly right coronary cusp that may represent just an anatomical abnormality but does not appear to be a vegetation. Is asked almost intermittent. MEASUREMENTS (Male / Female) Normal Values FINDINGS Left Ventricle Left ventricle is severely dilated with global hypokinesis and ejection fraction of less than 20%. No specific segmental wall motion normality is noted. Right Ventricle Right ventricle is probably normal size. Systolic function appears to probably normal as well. Right Atrium Right atrium is mildly dilated. Left Atrium Left atrium is moderately to severely dilated. LA Appendage Left atrial appendage is without thrombus or other abnormality with normal color and spectral Doppler. IA Septum Intra-atrial septum is without any shunt or other defect. No PFO is noted. Merlin cavitation study did not reveal any shunting at this level or level of the ventricular septum. Mitral Valve Mitral valve is anatomically function normal with trace regurgitation at worst. Aortic Valve The aortic valve is a tricuspid structure with normal motion without abnormalities. There is a shadowing that does not appear to be a vegetation but may actually be more of a structural abnormality the area the aortic valve and at the sinus of Valsalva. Tricuspid Valve Tricuspid valve is anatomically functionally normal with trace regurgitation. Pulmonic Valve Pulmonic valve is anatomically function normal. Pericardium No pericardial effusion is noted. Aorta The aorta is grossly normal size without abnormalities including the descending aorta and thoracic aorta. Horacio Toscano MD (Electronically Signed) Final Date: 17 April 2017 10:49
--- NOTE | 2017-04-17 11:32 | Event Note ---
Patient is doing well post transesophageal echocardiogram. I discussed with he and his family findings of his transesophageal echocardiogram. I recommend that he keep follow-up in [facility] where he levels. I recommend that he discuss with his skilled nursing facility counselor this upcoming Sunday a referral to a health practice manager in the local area. We will give him copies of his records and studies to take back with him. At this point I do not think any further cardiac evaluation is indicated and he should at least continue his present medications. I discussed with him and his family dietary changes and lifestyle changes including his smoking and alcohol as well as high sodium diet. Also discussed his weight issues. He voices understanding that he needs to be aggressive with this. We will course will not see the patient back on a as needed basis as he does not live here.
--- NOTE | 2017-04-17 12:04 | Hospitalist Progress Note ---
Assessment and Plan (1) Congestive heart failure Status: Acute Assessment and plan: MEGAN done today showed The left ventricle is severely dilated with severe LV dysfunction ejection fraction less than 20%. No segmental wall motion maladies noted in LV wall thickness is normal to mild hypertrophy. Plan Continue with diuretics, diet modification,asa, bblocker and cozaar Follow Cardiology's recommendations Current Visit: Yes Qualifiers: Congestive heart failure type: unspecified congestive heart failure type Congestive heart failure chronicity: unspecified congestive heart failure chronicity Qualified Code(s): I50.9 - Heart failure, unspecified (2) Left ventricular hypertrophy by electrocardiogram Status: Acute Assessment and plan: This may be secondary to long-standing and uncontrolled unmanaged hypertension. Follow Cardiology's recommendations Current Visit: Yes (3) Chronic renal insufficiency Status: Acute Assessment and plan: We will consult Nephrology Bmp in am Current Visit: Yes (4) Nicotine addiction Status: Chronic Assessment and plan: continue with patch, patient has been counseled Current Visit: Yes Qualifiers: Nicotine product type: cigarettes (5) Dyslipidemia Status: Acute Assessment and plan: on statin Current Visit: Yes (6) Obesity Status: Chronic Assessment and plan: Follow Dietitian's consult Current Visit: Yes Hospitalist: Subjective Interval history: Patient had a MEGAN this am.No new complaints. Exam - Constitutional Vitals: Period Temp Pulse Resp BP Sys/Ibrahim Pulse Ox Last 24 Hr 96.1 F-98 F 76-108 17-20 102-142/58-84 94-99 General appearance: no acute distress, over weight - Head Head exam: Present: normal inspection - Respiratory Respiratory exam: Present: clear to auscultation bilaterally - Cardiovascular Cardiovascular exam: Present: regular rate and rhythm - GI/Abdominal GI/Abdominal exam: Present: normal bowel sounds - Extremities Exam Extremities exam: Present: edema Results - Labs CBC & BMP: 04/17/17 05:01 04/17/17 05:01 Lab Results: I have reviewed the past 24 hour labs Specialty Discharge - Follow Up or Referrals
[2017-04-17] MEDS: ENOXAPARIN 40 MG/0.4 ML SYRINGE SUBCUT SCH (12:50)
[2017-04-17] MEDS: FUROSEMIDE 40 MG TABLET PO SCH (12:50)
[2017-04-17] MEDS: FUROSEMIDE 40 MG/4 ML VIAL IV SCH (12:52)
--- NOTE | 2017-04-17 13:38 | Physician Query Form ---
CLICK EDIT DOCUMENT TO SELECT QUERY ANSWER --> OK --> SIGN Tish Gates RN Clinical Clinical Microbiologist W) [phone] (f) [phone] [email or web address] PROVIDERS: Make your selection(s) from the choices in EACH section by typing an "x" and enter comments in the comment section. Please use your independent medical judgment in providing your response. This request does not imply that any particular answer is desired or expected. CLINICAL INDICATORS: (Providers should not edit this section) Based on documentation of "Acute Chronic Renal Insufficiency" Creatinine from 1.5 to 1.8. GFR form 85 to 79. Treated with NS infusion. Clarify which of the following most accurately represents the patient's renal status: ( ) Acute kidney injury (non-traumatic) (x ) Acute renal failure ( ) Acute renal failure with underlying Chronic Kidney Disease (CKD) - please provide stage below ( ) Acute renal failure with pathological renal lesion ( ) Acute renal failure with necrosis ( ) tubular ( ) medullary ( ) cortical ( ) CKD - please provide stage below ( ) End Stage Renal Disease ( ) Acute interstitial nephritis ( ) Hepatorenal syndrome ( ) Other, please specify: ( ) Clinically unable to determine Chronic Kidney Disease Stages Source: National Kidney Disease Foundation ( ) Stage I (eGFR > or = 90) (x ) Stage II (eGFR 60 - 89) ( ) Stage III (eGFR 30 - 59) ( ) Stage IV (eGFR 15 - 29) ( ) Stage V (eGFR < 15 or dialysis) COMMENTS: PLEASE ALSO DOCUMENT RESPONSE IN PROGRESS NOTES AND/OR DISCHARGE SUMMARY Use of terms such as suspected, likely, or probable (associated with a specific diagnosis that is being evaluated, monitored, or treated as if it exists) are acceptable and can be restated in the discharge summary if not ruled out. MTDD
--- NOTE | 2017-04-17 13:42 | Physician Query Form ---
CLICK EDIT DOCUMENT TO SELECT QUERY ANSWER --> OK --> SIGN Tish Gates RN Clinical Checker [employer] W) [phone] (f) [phone] [email or web address]: Make your selection(s) from the choices in EACH section by typing an "x" and enter comments in the comment section. Please use your independent medical judgment in providing your response. This request does not imply that any particular answer is desired or expected. CLINICAL INDICATORS: (Providers should not edit this section) Based on documentation of "Acute CHF secondary to LV Dysfunction" "Acute unspecified heart failure" "Echo showed severely dilated left ventricle with severe global hypokinesis and an EF of 15%" BNP of 488. Treated with IV Lasix. Please provide further specificity regarding CHF. ACUITY: ( ) Acute ( ) Chronic ( x) Acute on Chronic ( ) Clinically unable to determine TYPE: ( x) Systolic (HFrEF - heart failure with reduced systolic function/EF) ( ) Diastolic (HFpEF - heart failure with preserved systolic function/EF) ( ) Combined Systolic/Diastolic ( ) Other, please specify: ( ) Clinically unable to determine ( ) Past Medical History of Systolic CHF ( ) Past Medical History of Diastolic CHF ( ) Clinically unable to determine COMMENTS: PLEASE ALSO DOCUMENT RESPONSE IN PROGRESS NOTES AND/OR DISCHARGE SUMMARY Use of terms such as suspected, likely, or probable (associated with a specific diagnosis that is being evaluated, monitored, or treated as if it exists) are acceptable and can be restated in the discharge summary if not ruled out. MTDD
[2017-04-17] MEDS: cefTRIAXone 1,000 MG in SODIUM CHLORIDE 0.9% 100 ML IV SCH (13:45)
--- NOTE | 2017-04-17 14:47 | Nephrology Consult Note ---
History of Present Illness Chief complaint: Admitted for SOB, referred for "elevated creatinine" 1.8 History of present illness: Mr. Vela is a 37 year old male admitted for SOB, found to have severe dilated cardiomyopathy s/p MEGAN, EF <20%. Improved symptomatically with duretics since admission. Creatinine 1.5 up to 1.8 today for eGFR 79cc/min by CKD EPI formula and BSA 2.53m2. He is muscular and admits to both testosterone and creatine supplementation since at least January of this year. No proteinuria, 1+ hematuria on dipstick, no microscopic exam done but serum CK initially elevated, no renal imaging. Home Medications Medication Instructions Recorded Confirmed Type Flaxseed Oil 1,000 mg PO TID 04/16/17 04/16/17 History Human Chorionic Gonadotropin 04/16/17 History Letrozole 2.5 mg PO DAILY 04/16/17 04/16/17 History Testosterone Cypionate [Depo 1 ml IM Q6D 04/16/17 04/16/17 History Testosterone] Allergies Allergy/AdvReac Type Severity Reaction Status Date / Time No Known Allergies Allergy Unverified 04/16/17 05:45 Medical,Surgical,& Family Hx - Medical History Cardio: No history of: CAD Psychological: No history of: Behavior Problems, Previous Suicide Attempt, Psychiatric Problems Neurology: No history of: Neurological Problems HEENT: No history of: HEENT Problems Endocrine: No history of: Diabetes Mellitus (IDDM) Rheumatology: No history of;: Rheumatological Problems Respiratory: No history of: Respiratory Problems Renal: No history of: Renal Problems Gastrointestinal: No history of: GI Problems Musculoskeletal: No history of: Musculoskeletal Problems Hematology: No history of: Blood Disorders Reproductive: Reports: Reproductive Problems (Testosterone deficiency) - Family History Family History: Reports;: Family Diabetes (Mother), Family Hypertension (Father mother sister) - Social History Smoking Status: Current every day smoker Frequency of Alcohol Use: Occasionally Type of Drug Use: None (admits to creatine supplementation daily for at least 5 months) Exam - Vital Signs Vital signs: Period Temp Pulse Resp BP Sys/Ibrahim Pulse Ox Last 24 Hr 96.1 F-98 F 76-108 17-20 102-142/58-84 94-99 - General Appearance General appearance: well-developed, obese EENT: ATNC, PERRL, mucous membranes moist, hearing intact, vision intact Neck: no JVD, no thyromegaly Respiratory: no kyphosis, clear Cardiology: no murmurs, no rub Gastrointestinal: normoactive bowel sounds, no tenderness Integumentary: no rash, warm and dry Neurologic: no focal deficit, no asterixis, alert and oriented x3 Musculoskeletal: no deformities, no erythema Psychiatric: mood/affect appropriate, cooperative Results - Labs CBC & BMP: 04/17/17 05:01 04/17/17 05:01 Assessment and Plan (1) Creatinine elevation Problem details: Certainly increased by creatine supplementation with simple conversion to creatinine by creatine kinase. No evidence of renal damage. eGFR 79cc/min by CKD-EPI formula using creatinine 1.8 and BSA of 2.53m2. Status: Acute Assessment and plan: Renal u/s to rule out anatomic abnormality, if normal, no further nephrology followup or workup indicated. Outpatient followup with his PCM. Will sign off case at this time. Please call for any questions or concerns. Current Visit: Yes Specialty Discharge - Follow Up or Referrals
--- NOTE | 2017-04-17 15:59 | Ultrasound Report ---
US renal Bilateral Indication: Elevated creatinine. Comparison: None. Technique: Multiple longitudinal and transverse real-time sonographic images of the kidneys were obtained. Findings: The right kidney measures 12 x 5.9 x 5.4 cm, and the left kidney measures 12.8 x 6.6 x 6.6 cm. No solid renal lesions are identified. There is a hypoechoic/anechoic 1.7 x 1.8 x 1.6 cm area at the mid/lower central left kidney which may represent a parapelvic cyst or focal dilated calyx. This does not demonstrate increased blood flow on color Doppler. There is no evidence of nephrolithiasis or abnormal perinephric fluid collections. Renal cortical echogenicity and thickness are within normal limits. There is no hydronephrosis. There is no evidence of surrounding ascites. Ultrasound images were captured and stored. IMPRESSION: No acute sonographic abnormality within the kidneys. No significant hydronephrosis. Possible parapelvic cyst or less likely a focal dilated calyx within the mid/lower left kidney. PROCEDURE INTERPRETED AT [facility] DEPARTMENT OF RADIOLOGY Final Report Signed by: Zeke Mehta
[2017-04-17 18:20] LABS: Apearance,Urine CLEAR (Clear); Bilirubin,Urine Negative (Negative); Blood, Urine Negative (Negative); Glucose,Urine (UA) Negative (Negative); Ketones,Urine Negative (Negative); Nitrite,Urine Negative (Negative); Protein,Urine Negative; RBC,Urine 1 /HPF (0-4); Squamous Epithelial Cell,Urine Occasional /HPF (0-10); Urine Color Yellow (Yellow); Urine Specific Gravity 1.021 (1.001-1.035); Urine Urobilinogen < 2.0 EU/DL (0.2-1.0); WBC,Urine 2 /HPF (0-6)
[2017-04-17] MEDS: ATORVASTATIN 80 MG TABLET PO SCH (22:01)
[2017-04-18] MEDS: ALBUTEROL/IPRATROPIUM 3 ML NEB RESP TX SCH ×2 (01:03→07:34)
[2017-04-18 05:57] LABS: Calcium 8.7 MG/DL (8.5-10.1); Potassium 4.2 MMOL/L (3.5-5.1)
[2017-04-18] MEDS ORDERED: AZITHROMYCIN 250 MG TABLET PO SCH (09:00)
[2017-04-18] MEDS: ASPIRIN CHEW 81 MG TABLET PO SCH (09:30)
[2017-04-18] MEDS: PANTOPRAZOLE 40 MG TABLET PO SCH (09:31)
[2017-04-18] MEDS: LOSARTAN 25 MG TABLET PO SCH (09:31)
[2017-04-18] MEDS: FUROSEMIDE 40 MG TABLET PO SCH (09:31)
[2017-04-18] MEDS: ENOXAPARIN 40 MG/0.4 ML SYRINGE SUBCUT SCH (09:33)
[2017-04-18] MEDS: CARVEDILOL 6.25 MG TABLET PO SCH (09:35)
[2017-04-18] MEDS: cefTRIAXone 1,000 MG in SODIUM CHLORIDE 0.9% 100 ML IV SCH (10:05)
--- NOTE | 2017-04-18 10:18 | XRay Report ---
XR chest 2V Indication: SOB Comparison: Chest x-ray dated April 17, 2017 Technique: Frontal and lateral views of the chest. Findings: Moderate cardiomegaly. Mild bilateral infrahilar opacification suspicious for pulmonary edema or pneumonia. Pulmonary edema/CHF favored. Visualized osseous and surrounding soft tissue structures appear grossly unchanged. IMPRESSION: As above. PROCEDURE INTERPRETED AT [facility] DEPARTMENT OF RADIOLOGY Final Report Signed by: Dr Cesar Melo
--- NOTE | 2017-04-18 10:18 | Discharge Summary ---
<Leni Erickson - Last Filed: 04/18/17 10:10> Hospital Course - Hospital Course Hospital Course: This is a very pleasant 37-year-old male that presented to the ED at [facility] on the morning of April 16, 2017 for the evaluation of shortness of breath. The patient has a medical history significant for morbid obesity, nicotine addiction, and testosterone deficiency. The patient reported no surgical history at the time of encounter. The patient reported the onset of symptoms 2 days prior to presentation. He reported that he initially started experiencing short of breath that eventually progressed to a productive cough. In addition, he reported that the symptoms became very severe on last night prohibiting him from lying down. He describes the sputum production as "roland in color". He reported that the symptoms became very severe early this morning prompting him to present to the ED for further evaluation. The patient was seen and assessed at the time of ED presentation. Labs were obtained; complete blood count reported white blood cell count 6.2, hemoglobin 16.8, hematocrit 49.1, and platelet count at 211. Coagulation panel reported INR at 1.0, PT 10.6, d-dimer at less than or equal to 0.5, and PTT of 34.1. Comprehensive metabolic profile reported sodium 141, potassium 3.9, chloride 109 , carbon dioxide 22, anion gap 13.9, BUN 13, creatinine 1.50, calcium 9.1, AST 34, ALT 40, alkaline phosphatase 72, total creatinine kinase 663, CK-MB 2.3, troponin 0 0.048, and BNP at 488. Urinalysis and urine toxicology were both obtained and were essentially unremarkable. Chest x-ray reported cardiomegaly and pulmonary edema. The patient was subsequently admitted to the hospitalist service for continuation of care. Antihypertensive and cardiovascular agents were initiated at the time of admission. Due to the noted cardiac abnormalities at the time of admission, a cardiology consultation was requested. Echocardiogram performed on April 16, 2017 reported left ventricle severely dilated with severe global hypokinesis and ejection fraction of 15%, right atrium and right ventricle mildly dilated, moderately dilated left atrium, possible vegetation noted to the aortic valve anterior to the right coronary cusp and minimal elevated right-sided pressures. Carotid Doppler study on April 16, 2017 reported 0-15% stenosis in both internal carotid arteries with no significant plaque formation. On April 17, 2017 the patient underwent transesophageal echocardiogram with micro cavitation study which was significant for severe dilation of the left ventricle with severe left ventricular dysfunction and ejection fraction less than 20% however no segmental wall motion were noted in the left ventricle and thickness is normal to mild hypertrophy, right ventricular was probably normal size, right atrium at worse is mildly dilated, left atrium is Davian severely dilated, atrial and ventricular septum is intact without evidence for shunting, valvular structures are anatomically function normal, and the aortic valve was free of vegetation. The patient was gently diuresed and his conditions improved. On March 17, 2017, the patient was noted to have an elevation in his serum creatinine which was noted at 1.8. A nephrology consultation was requested. Renal USS showed no acute sonographic abnormalities within the kidneys,Possible parapelvic cyst or less likely a focal dilated calyx within the mid/lower left kidney.The patient was seen and recommendations were given. The patient's condition is stable. He has not experienced any significant overnight events. 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 We spoke with the patient in great detail regarding the need to adhere to his current medical regimen. In addition, the patient was advised to refrain from nicotine use, avoid sedimentary lifestyle, increase exercise, and make appropriate dietary choices. Diagnosis - Discharge Diagnosis (1) Nicotine addiction Status: Chronic (2) Left ventricular hypertrophy by electrocardiogram Status: Acute (3) Congestive heart failure Status: Acute (4) Elevated troponin I level Status: Acute (5) Acute bronchitis Status: Acute Specialty Discharge - Follow Up or Referrals Discharge Plan - Discharge Data Disposition: Disch To Home/Self Care - Discharge Medications New Acetaminophen Tab [Tylenol Tab] 650 mg PO Q4H PRN tablet PRN Reason: Fever, Headache, Mild Pain Aspirin Chew Tab 81 mg PO DAILY #30 tablet Atorvastatin [Lipitor] 80 mg PO BEDTIME #30 tablet Azithromycin Tab [Zithromax Tab] 500 mg PO DAILY #7 tablet Furosemide Tab [Lasix Tab] 40 mg PO DAILY #30 tablet guaiFENesin/DM ER 600-30 [Mucinex Dm 600-30 MG] 1 tablet PO BID PRN #7 tablet PRN Reason: Congestion HYDROcodone/ACETAMIN 7.5-325 [Mcdonald 7.5-325] 1 tablet PO Q4H PRN #20 tablet PRN Reason: Pain Moderate (4-7) Losartan [Cozaar] 25 mg PO BID #60 tablet Nicotine 21 mg/24 Hr Patch [Nicoderm CQ 21 mg/24 hr Patch] 1 patch TRANSDERM DAILY PRN #7 patch PRN Reason: Nicotine Cravings Pantoprazole Tab [Protonix Tab] 40 mg PO DAILY #30 tablet Carvedilol [Coreg] 6.25 mg PO BID W/MEALS #60 tablet Discontinued Testosterone Cypionate [Depo Testosterone] 1 ml IM Q6D Letrozole 2.5 mg PO DAILY Human Chorionic Gonadotropin Flaxseed Oil 1,000 mg PO TID - Follow Up or Referral - Forms/Instructions Instructions: How to Stop Smoking (GEN), Heart Healthy Diet (GEN), Cigarette Smoking and Your Health, Recreation Coordinator (GEN) Exam - Constitutional Vitals: Period Temp Pulse Resp BP Sys/Ibrahim Pulse Ox Last 24 Hr 96.9 F-98.5 F 74-100 18-22 90-117/60-83 92-99 Discharge Results Procedures and tests throughout hospitalization: Pending Orders 04/16/17 06:00 Blood Culture Stat 04/16/17 15:00 Legionella Ag, Urine Stat Streptococcus pneumoniae Ag, U Stat Labs on day of discharge: Labs from last 24 hours 04/18/17 04/17/17 04/17/17 04:19 15:00 15:00 Sodium 143 Potassium 4.2 Chloride 110 H Carbon Dioxide 25 Anion Gap 12.2 BUN 19 H Creatinine 1.60 H GFR Calculation 91 BUN/Creatinine Ratio 11.00 Glucose 90 Calculated Osmolality 286.0 Calcium 8.7 Urine Color Yellow Urine Appearance Clear Urine pH 5.0 Ur Specific Abbott 1.021 Urine Protein Negative Urine Glucose (UA) Negative Urine Ketones Negative Urine Blood Negative Urine Nitrate Negative Urine Bilirubin Negative Urine Urobilinogen < 2.0 H Urine Leukocytes Negative Urine RBC 1 Urine WBC 2 Ur Squamous Epith Cells Occasional Ur Culture Indicated? Not indicated Ur Random Creatinine U Random Total Protein Ur Random Urea Nitrogn 1483 04/17/17 04/17/17 15:00 15:00 Sodium Potassium Chloride Carbon Dioxide Anion Gap BUN Creatinine GFR Calculation BUN/Creatinine Ratio Glucose Calculated Osmolality Calcium Urine Color Urine Appearance Urine pH Ur Specific Abbott Urine Protein Urine Glucose (UA) Urine Ketones Urine Blood Urine Nitrate Urine Bilirubin Urine Urobilinogen Urine Leukocytes Urine RBC Urine WBC Ur Squamous Epith Cells Ur Culture Indicated? Ur Random Creatinine 326 U Random Total Protein 15 Ur Random Urea Nitrogn Preliminary micro results at discharge 04/16/17 06:00 Blood Culture - Preliminary Blood No growth at 1 day 04/16/17 06:00 Blood Culture - Preliminary Blood No growth at 1 day DS: Provider Date of admission: 04/16/17 08:02 Primary care physician: . Rebekah PCP Attending physician on admission: Yamilet Szymanski MD Consults: 04/16/17 11:24 Consult to Physician [CONS] Routine Comment: Consulting Provider: Cardiology - [facility] Consult to Specialist Group: Cardiology When should Consulting Provider be notified: Now Person Notified: [email or web address] Date Notified: 04/16/17 Time Notified: 12:28 04/16/17 15:03 Consult to Cardiac Rehabilitation [CONS] Routine Reason for Cardiac Rehabilitation: Smoking Cessation [employer] [facility] Consult to Dietitian [CONS] Routine Reason for Dietitian: Dietary Consult Consult Comment: low sodium and weight loss diet. 04/17/17 13:07 Consult to Physician [CONS] Routine Comment: Consulting Provider: Paulino Argueta Person Notified: [email or web address] Date Notified: 04/17/17 Discharging clinician: Leni Erickson CNP <Yamilet Szymanski - Last Filed: 04/18/17 12:29> Hospital Course - Time spent with patient Time with patient DS: Greater than 30 minutes (Time spent greater than 40mins) Diagnosis - Discharge Diagnosis (1) Congestive heart failure Status: Acute (2) Left ventricular hypertrophy by electrocardiogram Status: Acute (3) Chronic renal insufficiency Status: Acute (4) Nicotine addiction Status: Chronic (5) Dyslipidemia Status: Acute (6) Obesity Status: Chronic Discharge Plan - Discharge Data Condition at Discharge: Stable Discharge Diet: heart healthy Activity: resume usual activities as tolerated - Forms/Instructions Additional Discharge Instructions: Follow with PCP in 1week.Follow with a Cardiology as scheduled
--- NOTE | 2017-04-18 10:57 | Anesthesia Post-Op ---
Anesthesia Post OP - Post Ansesthetic Evaluation Patient seen in post op: Yes Resp: within normal limits CV: within normal limits Mental: within normal limits Temp: within normal limits [id number]: within normal limits Nausea and Vomiting: within normal limits Pain: within normal limits Patient seen at: date (04/17/17), time (0945)
[2017-04-18 11:50] VITALS: BP 107/71
== END 2017-04-18 15:17 | disposition home or self-care (01) | DRG 291 ==
LOC: N.ED 05:37 → N.EDINP 08:02 → N.2E 09:51
PROVIDERS: ADMIT Internal Medicine; ATTEND Internal Medicine